=== PATIENT | male | born 1940 | race Caucasian/White ===

== ENCOUNTER 2019-07-04 18:45 | Emergency (ER) | payer MEDICARE, BC ==
--- NOTE | 2019-07-04 19:18 | EDM.PDOC ---
ED HPI GENERAL MEDICAL PROBLEM - General Chief Complaint: General Stated Complaint: heart Time Seen by Provider: 07/04/19 19:00 Source of Information: Reports: Patient History Limitations: Reports: No Limitations - History of Present Illness INITIAL COMMENTS - FREE TEXT/NARRATIVE: 79-year-old male with atrial fibrillation and Parkinson's disease developed bilateral shoulder and back pain 4 hours ago, fairly sharp and hurt to breathe. The pain is now settled in his chest substernally, is mild but still present so he wanted it checked. He did not develop shortness of breath, nausea or vomiting, diaphoresis with the pain. He has not had this pain past. Denies abdominal pain. Denies neck pain. He still can make the pain worse by taking a deep breath, he can feel it substernally. He looks comfortable. Onset: Sudden Duration: Hour(s): (4 hours ago) Location: Reports: Chest, Back, Other (Bilateral shoulders) Quality: Reports: Sharp Worsens with: Reports: Breathing Associated Symptoms: Denies: Cough, Fever/Chills, Malaise, Nausea/Vomiting, Shortness of Breath, Weakness Chest Pain Score (Numeric/FACES): 4 - Related Data Allergies Allergy/AdvReac Type Severity Reaction Status Date / Time lisinopril Allergy Cough Verified 07/04/19 20:03 Home Meds: Home Meds Aspirin [Nick Chewable Aspirin] 81 mg PO DAILY 06/19/14 [History] Diltiazem [Cardizem] 120 mg PO DAILY 06/19/14 [History] Tamsulosin [Flomax] 0.8 mg PO BEDTIME 06/19/14 [History] hydroCHLOROthiazide [Hydrochlorothiazide] 25 mg PO DAILY 06/19/14 [History] Warfarin [Coumadin] 2.5 mg PO DAILY 07/04/19 [History] Warfarin [Coumadin] 5 mg PO DAILY 07/04/19 [History] hydroCHLOROthiazide [Hydrochlorothiazide] 50 mg PO DAILY 07/04/19 [History] Past Medical History HEENT History: Reports: Hard of Hearing, Impaired Vision Cardiovascular History: Reports: Afib, Hypertension Respiratory History: Reports: COPD Genitourinary History: Reports: BPH, Retention, Urinary, Other (See Below) Other Genitourinary History: urination frequency Neurological History: Reports: Concussion Dermatologic History: Reports: Cellulitis - Infectious Disease History Infectious Disease History: Reports: Chicken Pox - Past Surgical History HEENT Surgical History: Reports: Cataract Surgery Social & Family History - Caffeine Use Caffeine Use: Reports: Coffee - Alcohol Use Days Per Week of Alcohol Use: 7 Number of Drinks Per Day: 2 Total Drinks Per Week: 14 - Recreational Drug Use Recreational Drug Use: No ED ROS GENERAL - Review of Systems Review Of Systems: See Below Constitutional: Denies: Fever, Chills HEENT: Reports: No Symptoms Respiratory: Reports: Shortness of Breath (Patient has chronic shortness of breath, no new symptoms), Pleuritic Chest Pain. Denies: Cough Cardiovascular: Reports: Chest Pain. Denies: Palpitations GI/Abdominal: Reports: No Symptoms : Reports: No Symptoms Skin: Reports: No Symptoms Neurological: Reports: Other (Baseline resting tremor is chronic from Parkinson' s) Psychiatric: Reports: No Symptoms ED EXAM, GENERAL - Physical Exam Exam: See Below Exam Limited By: No Limitations General Appearance: Alert, No Apparent Distress Eye Exam: Bilateral Eye: EOMI Head: Atraumatic Neck: Normal Inspection Respiratory/Chest: No Respiratory Distress Cardiovascular: No Murmur, Irregularly Irregular GI/Abdominal: Soft, Non-Tender Extremities: Normal Inspection. No: Pedal Edema Neurological: Alert, Oriented, No Motor/Sensory Deficits, Other (Significant resting tremor, especially of the upper extremities) Skin Exam: Warm, Dry, Other (A few scattered superficial bruises on the extremities) EKG INTERPRETATION EKG Date: 07/04/19 Time: 19:00 Rhythm: A-Fib QRS: RBBB Comparison: NA - No Prior EKG Course - Vital Signs Last Recorded V/S: Last Vital Signs Temp 99.4 F 07/04/19 19:06 Pulse 89 07/04/19 20:22 Resp 14 07/04/19 20:22 BP 130/78 07/04/19 20:22 Pulse Ox 96 07/04/19 20:22 - Orders/Labs/Meds Orders: Active Orders 24 hr Category Date Time Status EKG Documentation Completion [RC] ASDIRECTED Care 07/04/19 19:01 Active EKG 12 Lead [EK] Routine Ther 07/04/19 19:01 Ordered Labs: Laboratory Tests 07/04/19 07/04/19 07/04/19 Range/Units 19:00 19:10 19:10 WBC 11.0 (4.5-11.0) K/uL RBC 4.18 L (4.30-5.90) M/uL Hgb 13.8 (12.0-15.0) g/dL Hct 39.0 L (40.0-54.0) % MCV 93 (80-98) fL MCH 33 H (27-31) pg MCHC 35 (32-36) % Plt Count 302 (150-400) K/uL Neut % (Auto) 90 H (36-66) % Lymph % (Auto) 4 L (24-44) % [place] % (Auto) 6 (2-6) % Eos % (Auto) 1 L (2-4) % Baso % (Auto) 0 (0-1) % PT 49.2 H (9.5-12.0) sec INR 4.99 H* (0.80-1.20) Sodium 133 L (140-148) mmol/L Potassium 2.9 L* (3.6-5.2) mmol/L Chloride 94 L (100-108) mmol/L Carbon Dioxide 29 (21-32) mmol/L Anion Gap 12.9 (5.0-14.0) mmol/L BUN 16 (7-18) mg/dL Creatinine 0.8 (0.8-1.3) mg/dL Est Cr Clr Drug Dosing 68.98 mL/min Estimated GFR (MDRD) > 60 (>60) Glucose 100 (74-106) mg/dL Calcium 9.0 (8.5-10.1) mg/dL Total Bilirubin 1.0 (0.2-1.0) mg/dL AST 18 (15-37) U/L ALT 13 (12-78) U/L Alkaline Phosphatase 108 (46-116) U/L Troponin I (0.000-0.056) ng/mL Total Protein 7.0 (6.4-8.2) g/dL Albumin 3.1 L (3.4-5.0) g/dL Globulin 3.9 H (2.3-3.5) g/dL Albumin/Globulin Ratio 0.8 L (1.2-2.2) 07/04/19 Range/Units 19:10 WBC (4.5-11.0) K/uL RBC (4.30-5.90) M/uL Hgb (12.0-15.0) g/dL Hct (40.0-54.0) % MCV (80-98) fL MCH (27-31) pg MCHC (32-36) % Plt Count (150-400) K/uL Neut % (Auto) (36-66) % Lymph % (Auto) (24-44) % [place] % (Auto) (2-6) % Eos % (Auto) (2-4) % Baso % (Auto) (0-1) % PT (9.5-12.0) sec INR (0.80-1.20) Sodium (140-148) mmol/L Potassium (3.6-5.2) mmol/L Chloride (100-108) mmol/L Carbon Dioxide (21-32) mmol/L Anion Gap (5.0-14.0) mmol/L BUN (7-18) mg/dL Creatinine (0.8-1.3) mg/dL Est Cr Clr Drug Dosing mL/min Estimated GFR (MDRD) (>60) Glucose (74-106) mg/dL Calcium (8.5-10.1) mg/dL Total Bilirubin (0.2-1.0) mg/dL AST (15-37) U/L ALT (12-78) U/L Alkaline Phosphatase (46-116) U/L Troponin I < 0.017 (0.000-0.056) ng/mL Total Protein (6.4-8.2) g/dL Albumin (3.4-5.0) g/dL Globulin (2.3-3.5) g/dL Albumin/Globulin Ratio (1.2-2.2) Meds: Medications Discontinued Medications Generic Name Dose Route Start Last Admin Trade Name Freq PRN Reason Stop Dose Admin Potassium Chloride 40 meq 07/04/19 20:01 07/04/19 20:13 Klor-Con M20 PO 07/04/19 20:02 40 meq ONETIME ONE Administration - Re-Assessments/Exams Free Text/Narrative Re-Assessment/Exam: 07/04/19 20:01 Patient remained comfortable while in the emergency room. He had a small amount of pain with a deep breath, otherwise no pain and no shortness of breath. His chest x-ray showed a small right pleural effusion, no previous x- rays to compare. Potassium is low at 2.9, INR was high at 4.99 but the rest of his chemistry panel was normal and his troponin was 0. He was given 40 mEq of oral potassium and a prescription for 20 mg daily. He is going to hold his Coumadin until his INR falls below 3 which he can check at home. A copy of the chest x-ray was given to the patient and he is going to recheck with [facility] next week or his primary care at [place] to recheck his potassium and compare his chest x-ray to any previous available. He will return sooner if worsening such as increasing shortness of breath or pain. Departure - Departure Time of Disposition: 20:33 Disposition: Home, Self-Care Clinical Impression: Pleuritic chest pain, Hypokalemia, Supratherapeutic INR - Discharge Information Instructions: Nonspecific Chest Pain Referrals: PCP,None [Primary Care Provider] - Forms: ED Department Discharge Care Plan Goals: Hold your warfarin and check your INR daily until it falls below 3. And restart your warfarin at your usual dose. Take potassium daily as prescribed, and recheck next week with your regular physicians to discuss the small abnormality on your chest x-ray and recheck your potassium. Return sooner if worsening such as fever, increased chest pain or difficulty breathing. Sepsis Event Note - Evaluation Sepsis Screening Result: No Definite Risk - Focused Exam Vital Signs: Vital Signs Temp Pulse Resp BP Pulse Ox 07/04/19 20:22 89 14 130/78 96 07/04/19 19:06 99.4 F 94 20 128/77 98 07/04/19 19:01 99.4 F 94 20 128/77 98 Date Exam was Performed: 07/04/19 Time Exam was Performed: 22:14 - My Orders Last 24 Hours: My Active Orders 07/04/19 19:01 EKG Documentation Completion [RC] ASDIRECTED EKG 12 Lead [EK] Routine - Assessment/Plan Last 24 Hours: My Active Orders 07/04/19 19:01 EKG Documentation Completion [RC] ASDIRECTED EKG 12 Lead [EK] Routine
--- NOTE | 2019-07-04 19:49 | CRLCR ---
Indication: Chest pain Technique: Chest 1 view Comparison: None Findings/Impression: Normal cardiomediastinal silhouette. Normal pulmonary vasculature. Small right pleural effusion. Trace left pleural effusion. No focal infiltrate or pneumothorax. No acute osseous abnormality. Dictated by Lynda Quach MD @ Jul 04 2019 7:45PM Signed by Dr. Lynda Quach @ Jul 04 2019 7:47PM
[2019-07-04] MEDS ORDERED: Potassium Chloride 20 MEQ Tab.ER PO ONE (20:01)
[2019-07-04 20:23] VITALS: BP 130/78; PULSE 89
== END 2019-07-04 20:20 | disposition home or self-care (01) ==
LOC: JP.ED 18:45
DX: R07.81 Pleurodynia (principal); E87.6 Hypokalemia; R79.1 Abnormal coagulation profile; I48.91 Unspecified atrial fibrillation; J44.9 Chronic obstructive pulmonary disease, unspecified; Z79.01 Long term (current) use of anticoagulants; Z79.82 Long term (current) use of aspirin; Z88.8 Allergy status to other drugs, medicaments and biological substances
CPT/HCPCS: 36415; 71045; 80053; 84484; 85025; 85610; 93005; 93010; 99284; 99285; A9270

== ENCOUNTER 2020-08-16 12:10 | Emergency (ER) | payer MEDICARE, BC ==
[2020-08-16 14:00] VITALS: PULSE 85
--- NOTE | 2020-08-16 14:25 | EDM.PDOC ---
ED HPI GENERAL MEDICAL PROBLEM - General Chief Complaint: Upper Extremity Injury/Pain Stated Complaint: HAS A LARGE BRUSE ON HIS RIGHT ARM Time Seen by Provider: 08/16/20 14:10 Source of Information: Reports: Patient, Old Records, RN History Limitations: Reports: No Limitations - History of Present Illness INITIAL COMMENTS - FREE TEXT/NARRATIVE: 80 yo male here with a swollen and ecchymotic L arm that began yesterday and is worse today. He denies injury. He is on warfarin and is not sure when he last had his INR checked. Arm is a little stiff, but not painful. Onset: Gradual Onset Date: 08/15/20 Duration: Day(s): (1+), Getting Worse Location: Reports: Upper Extremity, Right Quality: Reports: Dull Severity: Mild Improves with: Reports: None Worsens with: Reports: Other (time) Context: Reports: Other (See HPI) Associated Symptoms: Reports: No Other Symptoms Treatments [employer]: Reports: Other (see below) (none) - Related Data Allergies Allergy/AdvReac Type Severity Reaction Status Date / Time lisinopril Allergy Cough Verified 08/16/20 13:56 Home Meds: Home Meds Aspirin [Nick Chewable Aspirin] 81 mg PO DAILY 06/19/14 [History] Diltiazem [Cardizem] 120 mg PO DAILY 06/19/14 [History] Tamsulosin [Flomax] 0.8 mg PO BEDTIME 06/19/14 [History] Warfarin [Coumadin] 2.5 mg PO DAILY 07/04/19 [History] Warfarin [Coumadin] 5 mg PO DAILY 07/04/19 [History] hydroCHLOROthiazide [Hydrochlorothiazide] 50 mg PO DAILY 07/04/19 [History] Past Medical History HEENT History: Reports: Hard of Hearing, Impaired Vision Cardiovascular History: Reports: Afib, Hypertension Respiratory History: Reports: COPD Genitourinary History: Reports: BPH, Retention, Urinary, Other (See Below) Other Genitourinary History: urination frequency Neurological History: Reports: Concussion, Parkinson's Hematologic History: Reports: Anticoagulation Therapy, Blood Transfusion(s) Dermatologic History: Reports: Cellulitis - Infectious Disease History Infectious Disease History: Reports: Chicken Pox - Past Surgical History Head Surgeries/Procedures: Reports: None HEENT Surgical History: Reports: Cataract Surgery Cardiovascular Surgical History: Reports: None Neurological Surgical History: Reports: None Dermatological Surgical History: Reports: None Social & Family History - Tobacco Use Tobacco Use Status *Q: Current Every Day Tobacco User Years of Tobacco use: 5 Packs/Tins Daily: 0.5 Used Tobacco, but Quit: No Second Hand Smoke Exposure: No - Caffeine Use Caffeine Use: Reports: None - Alcohol Use Days Per Week of Alcohol Use: 7 Number of Drinks Per Day: 2 Total Drinks Per Week: 14 - Recreational Drug Use Recreational Drug Use: No Review of Systems - Review of Systems Review Of Systems: See Below Constitutional: Reports: No Symptoms Eyes: Reports: No Symptoms Nose: Reports: No Symptoms Mouth/Throat: Reports: No Symptoms Respiratory: Reports: No Symptoms Cardiovascular: Reports: Lightheadedness (this morning, not now) Musculoskeletal: Reports: Other (L arm/forearm slightly swollen) Skin: Reports: Bruising (most of L arm and forearm) Neurological: Reports: No Symptoms ED EXAM, GENERAL - Physical Exam Exam: See Below Exam Limited By: No Limitations General Appearance: Alert, WD/WN, No Apparent Distress Eye Exam: Bilateral Eye: Normal Inspection Ears: Normal External Exam, Normal Canal, Hearing Grossly Normal Ear Exam: Bilateral Ear: Auricle Normal, Canal Normal Nose: Normal Inspection, No Blood Throat/Mouth: Normal Lips, Normal Voice Head: Atraumatic, Normocephalic Neck: Normal Inspection Respiratory/Chest: No Respiratory Distress, Lungs Clear, Normal Breath Sounds, No Accessory Muscle Use Extremities: Other (L arm/forearm slightly swollen and entire arm is ecchymotic. There is localized swelling to the lateral, proximal arm just below the deltoid. ). No: Limited Range of Motion, Increased Warmth, Redness Course - Vital Signs Last Recorded V/S: Last Vital Signs Temp 36.7 C 08/16/20 14:00 Pulse 85 08/16/20 15:04 Resp 16 08/16/20 14:00 BP 163/76 H 08/16/20 15:04 Pulse Ox 98 08/16/20 15:04 Orthostatic Blood Pressure [ 133/71 Standing] Orthostatic Blood Pressure [ 163/76 Sitting] - Orders/Labs/Meds Orders: Active Orders 24 hr Category Date Time Status Orthostatic Vital Signs [RC] ASDIRECTED Care 08/16/20 15:01 Active Labs: Laboratory Tests 08/16/20 08/16/20 Range/Units 14:31 14:31 Hgb 11.3 L D (12.0-15.0) g/dL PT 72.1 H (9.5-12.0) sec INR 6.87 H* (0.80-1.20) Departure - Departure Time of Disposition: 15:40 Disposition: Home, Self-Care 01 Condition: Fair Clinical Impression: Supratherapeutic INR Arm bruise Qualifiers: Encounter type: initial encounter Laterality: right Qualified Code(s): S40.021A - Contusion of right upper arm, initial encounter - Discharge Information *PRESCRIPTION DRUG MONITORING PROGRAM REVIEWED*: Not Applicable *COPY OF PRESCRIPTION DRUG MONITORING REPORT IN PATIENT [place]: Not Applicable Referrals: Jeromy Jennings MD [Primary Care Provider] - Forms: ED Department Discharge Additional Instructions: Take none of your warfarin until your doctor tells you it is OK. Drink lots of water or other fluids to keep your blood pressure up when you stand. Use your walker with walking to reduce your risk of falling. Recheck with your doctor for another PT/INR in a couple days (Monday or Monday). Return as needed. It would be OK today and tomorrow if you wanted to eat green leafy vegetables as this may return your blood to normal quicker. Sepsis Event Note (ED) - Evaluation Sepsis Screening Result: No Definite Risk - Focused Exam Vital Signs: Vital Signs Temp Pulse Resp BP Pulse Ox 08/16/20 15:04 85 163/76 H 98 08/16/20 14:00 36.7 C 85 16 155/75 H 97 08/16/20 13:59 36.7 C 85 16 155/75 H 97 - My Orders Last 24 Hours: My Active Orders 08/16/20 15:01 Orthostatic Vital Signs [RC] ASDIRECTED - Assessment/Plan Last 24 Hours: My Active Orders 08/16/20 15:01 Orthostatic Vital Signs [RC] ASDIRECTED
[2020-08-16 15:05] VITALS: BP 163/76
== END 2020-08-16 15:36 | disposition home or self-care (01) ==
LOC: JP.ED 12:10
DX: S40.021A Contusion of right upper arm, initial encounter (principal); R79.1 Abnormal coagulation profile; I10 Essential (primary) hypertension; I48.91 Unspecified atrial fibrillation; J44.9 Chronic obstructive pulmonary disease, unspecified; N40.1 Benign prostatic hyperplasia with lower urinary tract symptoms; R33.8 Other retention of urine; Z72.0 Tobacco use; Z88.8 Allergy status to other drugs, medicaments and biological substances; Z79.01 Long term (current) use of anticoagulants; Z79.82 Long term (current) use of aspirin; Z79.899 Other long term (current) drug therapy; X58.XXXA Exposure to other specified factors, initial encounter
CPT/HCPCS: 36415; 85018; 85610; 99282; 99283

== ENCOUNTER 2022-02-27 11:45 | Emergency (ER) | payer MEDICARE, BC ==
[2022-02-27] MEDS ORDERED: Morphine 2 MG/ML SYRINGE IVPUSH ONE (13:00)
[2022-02-27] MEDS ORDERED: Ondansetron 4 MG/2 ML SDV IVPUSH ONE (13:01)
[2022-02-27 15:15] VITALS: BP 122/77; PULSE 101
== END 2022-02-27 15:37 ==
LOC: JP.ED 11:45
DX: S72.002A Fracture of unspecified part of neck of left femur, initial encounter for closed fracture (principal); J44.9 Chronic obstructive pulmonary disease, unspecified; I10 Essential (primary) hypertension; Z88.8 Allergy status to other drugs, medicaments and biological substances; Z79.899 Other long term (current) drug therapy; Z79.82 Long term (current) use of aspirin; Z20.822 Contact with and (suspected) exposure to COVID-19; W01.0XXA Fall on same level from slipping, tripping and stumbling without subsequent striking against object, initial encounter
CPT/HCPCS: 51702; 73502; 73700; 96374; 96375; 99285; J2270; J2405; U0002

== ENCOUNTER 2022-07-16 18:07 | Emergency (ER) | payer MEDICARE, BC ==
[2022-07-16 18:34] VITALS: BP 153/88; PULSE 93
[2022-07-16 19:37] LABS: ESTIMATED GFR 91 mL/min (>60); TROPONIN I HIGH SENSITIVITY 39.4 pg/mL (<=60.3)
== END 2022-07-16 21:18 | disposition home or self-care (01) ==
LOC: JP.ED 18:07
DX: I11.0 Hypertensive heart disease with heart failure (principal); I50.40 Unspecified combined systolic (congestive) and diastolic (congestive) heart failure; G20 Parkinson's disease; I48.19 Other persistent atrial fibrillation; J44.9 Chronic obstructive pulmonary disease, unspecified; N40.0 Benign prostatic hyperplasia without lower urinary tract symptoms; Z88.8 Allergy status to other drugs, medicaments and biological substances; Z79.82 Long term (current) use of aspirin; Z79.899 Other long term (current) drug therapy
CPT/HCPCS: 36415; 70450; 71046; 71046-26; 80053; 83735; 83880; 84484; 85025; 93005; 93010; 99285